=== PATIENT | male | born 1960 | race Asian ===

== ENCOUNTER 2017-06-18 01:27 | Emergency (ER) | payer OTHER ==
[2017-06-18] MEDS ORDERED: KETOROLAC TROMETHAMINE 60 MG/2 ML VIAL IM ONE (01:40)
--- NOTE | 2017-06-18 01:40 | PDOC ---
History of Present Illness - General History Source: Patient Exam Limitations: No Limitations - History of Present Illness Initial Comments: 06/18/17 01:44 56 year old male with a PMHx of HTN, HLD, diabetes who presents to the ED with left sided toothache today. Patient had a root canal last week on the tooth that is painful. He took Ibuprofen with no relief. He has a follow-up appointment on Saturday and states the pain was too severe to wait until then. No other complaints. <Isela Godoy - Last Filed: 06/18/17 01:44> - General History Source: Patient, Old Records Exam Limitations: No Limitations <Jesusita Rodriguez - Last Filed: 06/18/17 01:59> - General Stated Complaint: TOOTHACHE Time Seen by Provider: 06/18/17 01:34 Past History <Isela Godoy - Last Filed: 06/18/17 01:44> - Past Medical History Cardiac Disorders: Yes (CAD, Stent 08/2013) Diabetes: Yes HTN: Yes Hypercholesterolemia: Yes - Surgical History Cardiac Surgery: Yes (CARDIAC STENTS) - Psycho/Social/Smoking Cessation Hx Suicidal Ideation: No Smoking History: Former smoker Have you smoked in the past 12 months: No If you are a former smoker, when did you quit?: 4 YRS AGO Hx Alcohol Use: Yes (RARE) Drug/Substance Use Hx: No Substance Use Type: None <JenniferJesusita - Last Filed: 06/18/17 01:59> - Past Medical History Allergies/Adverse Reactions: Allergies Allergy/AdvReac Type Severity Reaction Status Date / Time No Known Allergies Allergy Verified 06/18/17 01:40 Home Medications: Ambulatory Orders Alpha Lipoic Acid 300 mg PO DAILY 12/28/15 Aspirin [ASA -] 81 mg PO DAILY 12/28/15 Clopidogrel Bisulfate [Plavix -] 75 mg PO DAILY 12/28/15 Insulin Glargine,Hum.rec.anlog [Lantus Solostar PEN -] 50 units SQ HS 12/28/15 Insulin Lispro [Humalog] 0 unit SQ ASDIR 12/28/15 Lisinopril [Prinivil -] 40 mg PO DAILY 12/28/15 Metoprolol Succinate [Toprol Xl -] 25 mg PO DAILY 12/28/15 Omeprazole [Prilosec (RX)] 40 mg PO BID 12/28/15 Ranolazine [Ranexa] 500 mg PO DAILY 12/28/15 Simvastatin [Zocor -] 20 mg PO HS 12/28/15 Sitagliptin Phos/Metformin HCl [Janumet 50-1,000 mg Tablet] 1 tab PO BID Tamsulosin HCl [Flomax] 0.4 mg PO DAILY 12/28/15 Review of Systems - Review of Systems Comments:: 06/18/17 01:44 GENERAL/CONSTITUTIONAL: No fever or chills. No weakness. HEAD, EYES, EARS, NOSE AND THROAT: (+) toothache. No change in vision. No ear pain or discharge. No sore throat. CARDIOVASCULAR: No chest pain or shortness of breath. RESPIRATORY: No cough, wheezing, or hemoptysis. GASTROINTESTINAL: No nausea, vomiting, diarrhea or constipation. GENITOURINARY: No dysuria, frequency, or change in urination. MUSCULOSKELETAL: No joint or muscle swelling or pain. No neck or back pain. SKIN: No rash NEUROLOGIC: No headache, vertigo, loss of consciousness, or change in strength/ sensation. ENDOCRINE: No increased thirst. No abnormal weight change. HEMATOLOGIC/LYMPHATIC: No anemia, easy bleeding, or history of blood clots. ALLERGIC/IMMUNOLOGIC: No hives or skin allergy. <Isela Godoy - Last Filed: 06/18/17 01:44> *Physical Exam - Vital Signs Last Vital Signs Temp Pulse Resp BP Pulse Ox 98.6 F 78 20 148/62 98 06/18/17 01:40 06/18/17 01:40 06/18/17 01:40 06/18/17 01:40 06/18/17 01:40 - Physical Exam Comments: 06/18/17 01:44 GENERAL: Awake, alert, and fully oriented, in no acute distress HEAD: No signs of trauma EYES: PERRLA, EOMI, sclera anicteric, conjunctiva clear ENT: Gingiva intact, no purulent drainage, no tenderness when pressing tooth, nonerythematous. Auricles normal inspection, hearing grossly normal, nares patent, oropharynx clear without exudates. Moist mucosa NECK: No cervical lymphadenopathy. Normal ROM, supple, JVD, or masses LUNGS: Breath sounds equal, clear to auscultation bilaterally. No wheezes, and no crackles HEART: Regular rate and rhythm, normal S1 and S2, no murmurs, rubs or gallops ABDOMEN: Soft, nontender, normoactive bowel sounds. No guarding, no rebound. No masses EXTREMITIES: Normal range of motion, no edema. No clubbing or cyanosis. No cords , erythema, or tenderness NEUROLOGICAL: Cranial nerves II through XII grossly intact. Normal speech, normal gait SKIN: Warm, Dry, normal turgor, no rashes or lesions noted. <Isela Godoy - Last Filed: 06/18/17 01:44> Medical Decision Making - Medical Decision Making 06/18/17 01:42 56-year-old male with history of hypertension, diabetes, HLD, coronary artery disease status post stent x 1 and 2 vessel CABG last year presents to the emergency department with 3-4 hours of dental pain and tooth #21. There is no evidence of infection or abscess formation. Plan: 1. Toradol and Percocet 2. Follow-up with dentist in the morning 3. Return to the emergency department as needed <Jesusita Rodriguez - Last Filed: 06/18/17 01:59> *DC/Admit/Observation/Transfer - Attestations Scribe Attestion: 06/18/17 01:45 Documentation prepared by Isela Godoy, acting as remote medical coder for Jesusita Rodriguez MD. <Isela Godoy - Last Filed: 06/18/17 01:44> - Discharge Dispostion Admit: No - Attestations Physician Attestion: 06/18/17 01:41 I, Dr. Jesusita Rodriguez, attest that the scribes documentation that appears above has been prepared under my direction and personally reviewed by me in its entirety. I confirmed that the note above accurately reflects all work, treatment, procedures, and medical decision-making performed by me. <Jesusita Rodriguez - Last Filed: 06/18/17 01:59> Diagnosis at time of Disposition: Toothache - Discharge Dispostion Disposition: HOME Condition at time of disposition: Stable - Referrals Referrals: Garcia Jarquin MD [Primary Care Provider] - - Patient Instructions Printed Discharge Instructions: DI for Dental Pain Additional Instructions: Please follow-up with your dentist in the morning. You may return to the ED if your symptoms persist, worsen or new symptoms arise.
[2017-06-18] MEDS ORDERED: KETOROLAC TROMETHAMINE 60 MG/2 ML VIAL ONE (01:45)
[2017-06-18 02:02] VITALS: BP 148/62; PULSE 78; TEMP 98.6; BMI 30.4
== END 2017-06-18 02:15 | disposition home or self-care (01) ==
LOC: JER 01:27
PROC: 3E0233Z Introduction of Anti-inflammatory into Muscle, Percutaneous Approach (ICD-10-PCS; principal; 2017-06-18)
DX: K08.9 Disorder of teeth and supporting structures, unspecified (principal); I25.10 Atherosclerotic heart disease of native coronary artery without angina pectoris; I10 Essential (primary) hypertension; Z95.1 Presence of aortocoronary bypass graft; Z95.5 Presence of coronary angioplasty implant and graft; Z87.891 Personal history of nicotine dependence; E11.9 Type 2 diabetes mellitus without complications; Z79.4 Long term (current) use of insulin; Z79.84 Long term (current) use of oral hypoglycemic drugs; E78.00 Pure hypercholesterolemia, unspecified
CPT/HCPCS: 96372; 99282-25

== ENCOUNTER 2017-06-18 21:27 | Emergency (ER) | payer OTHER ==
[2017-06-18 21:43] VITALS: BP 116/74; PULSE 84; TEMP 98.4; BMI 30.4
--- NOTE | 2017-06-18 22:08 | PDOC ---
History of Present Illness - General Chief Complaint: Pain Stated Complaint: DENTAL PAIN Time Seen by Provider: 06/18/17 22:08 History Source: Patient - History of Present Illness Initial Comments: 06/18/17 22:26 pt presents to the ED complaining of persistent pain after start of root canal yesterday. Denies fevers, trismus or facial swelling. Seen in the ED early this AM for the same complaint--treated with toradol which relieved his pain, but now the pain has recurred. Pain starts in the affected tooth and radiates to the L side of the face. no relief with any OTC medications for pain-- patient has tried ibuprofen and tylenol. 06/18/17 22:28 Timing/Duration: constant Severity: moderate Associated Symptoms: reports: denies symptoms Past History - Past Medical History Allergies/Adverse Reactions: Allergies Allergy/AdvReac Type Severity Reaction Status Date / Time No Known Allergies Allergy Verified 06/18/17 21:29 Home Medications: Ambulatory Orders Aspirin [ASA -] 81 mg PO DAILY 12/28/15 Clopidogrel Bisulfate [Plavix -] 75 mg PO DAILY 12/28/15 Insulin Glargine,Hum.rec.anlog [Lantus Solostar PEN -] 50 units SQ HS 12/28/15 Insulin Lispro [Humalog] 0 unit SQ ASDIR 12/28/15 Lisinopril [Prinivil -] 40 mg PO DAILY 12/28/15 Metoprolol Succinate [Toprol Xl -] 25 mg PO DAILY 12/28/15 Omeprazole [Prilosec (RX)] 40 mg PO BID 12/28/15 Ranolazine [Ranexa] 500 mg PO DAILY 12/28/15 Simvastatin [Zocor -] 20 mg PO HS 12/28/15 Sitagliptin Phos/Metformin HCl [Janumet 50-1,000 mg Tablet] 1 tab PO BID Tamsulosin HCl [Flomax] 0.4 mg PO DAILY 12/28/15 Cardiac Disorders: Yes (CAD, Stent 08/2013) Diabetes: Yes GI Disorders: Yes (GERD) HTN: Yes Hypercholesterolemia: Yes - Surgical History Cardiac Surgery: Yes (CARDIAC STENTS) - Immunization History Immunization Up to Date: Yes - Psycho/Social/Smoking Cessation Hx Anxiety: No Suicidal Ideation: No Smoking History: Former smoker Have you smoked in the past 12 months: No If you are a former smoker, when did you quit?: 4 YRS AGO Information on smoking cessation initiated: No Hx Alcohol Use: No Drug/Substance Use Hx: No Substance Use Type: None Review of Systems - Review of Systems Comments:: 06/18/17 22:30 Denies fevers, facial swelling or trismus. *Physical Exam - Vital Signs Last Vital Signs Temp Pulse Resp BP Pulse Ox 98.4 F 84 16 116/74 96 06/18/17 21:28 06/18/17 21:28 06/18/17 21:28 06/18/17 21:28 06/18/17 21:28 - Physical Exam Comments: 06/18/17 22:31 GEN: well appearing, in no acute distress. HEENT: No trismus. tenderness over molars. No fluctuance. No facial swelling. No dental carries. Neck: supple. Medical Decision Making - Medical Decision Making 06/18/17 22:41 Pt presents to the ED requesting "a shot" to help with dental pain after root canal. No signs of infection. No complaints other than dental pain. PAtient is confident that he can arrange follow up with his dentist tomorrow. Recently took low dose ibuprofen. Will give low dose toradol and discharge home. *DC/Admit/Observation/Transfer Diagnosis at time of Disposition: Toothache - Discharge Dispostion Disposition: HOME Condition at time of disposition: Good Admit: No - Patient Instructions Printed Discharge Instructions: DI for Dental Pain Additional Instructions: Return to the ED for severe pain, facial swelling, unable to completely open your mouth, pain with fever, new or worsening symptoms. Make sure you follow up with your dentist tomorrow.
[2017-06-18] MEDS ORDERED: KETOROLAC TROMETHAMINE 60 MG/2 ML VIAL IM ONE (22:15)
[2017-06-18] MEDS ORDERED: KETOROLAC TROMETHAMINE 15 MG/ML VIAL IM ONE (22:36)
[2017-06-18] MEDS ORDERED: KETOROLAC TROMETHAMINE 30 MG/1 ML VIAL ONE (22:41)
== END 2017-06-18 22:54 | disposition home or self-care (01) ==
LOC: FER 21:27
PROC: 3E0233Z Introduction of Anti-inflammatory into Muscle, Percutaneous Approach (ICD-10-PCS; principal; 2017-06-18)
DX: K08.89 Other specified disorders of teeth and supporting structures (principal); I25.10 Atherosclerotic heart disease of native coronary artery without angina pectoris; I10 Essential (primary) hypertension; E78.00 Pure hypercholesterolemia, unspecified; E11.9 Type 2 diabetes mellitus without complications; K21.9 Gastro-esophageal reflux disease without esophagitis; Z79.4 Long term (current) use of insulin; F17.211 Nicotine dependence, cigarettes, in remission
CPT/HCPCS: 96372; 99281-25

== ENCOUNTER 2018-01-20 07:16 | Day surgery (SDC) | payer OTHER ==
[2018-01-20] MEDS ORDERED: DIPHENHYDRAMINE 50 MG in SODIUM CHLORIDE 100 ML IVPB ONE (10:00)
[2018-01-20] MEDS ORDERED: ACETAMINOPHEN 325 MG TABLET (FP) PO ONE (10:00)
[2018-01-20] MEDS ORDERED: FERRIC CARBOXYMALTOSE 750 MG in SODIUM CHLORIDE 250 ML IVPB ONE (10:30)
[2018-01-20 16:46] VITALS: BP 135/72
[2018-01-20 16:47] VITALS: PULSE 65; TEMP 98.3
== END 2018-01-20 16:45 | disposition home or self-care (01) ==
LOC: JONCNONCHE 07:16 → J7W 13:50 → JONCNONCHE 16:45
PROVIDERS: ATTEND Internal Medicine Hematology & Oncology
PROC: 3E033GC Introduction of Other Therapeutic Substance into Peripheral Vein, Percutaneous Approach (ICD-10-PCS; principal; 2018-01-20)
DX: D50.9 Iron deficiency anemia, unspecified (principal)
CPT/HCPCS: 96365

== ENCOUNTER 2018-01-27 07:34 | Day surgery (SDC) | payer OTHER ==
[2018-01-27] MEDS ORDERED: DIPHENHYDRAMINE 50 MG in SODIUM CHLORIDE 100 ML IVPB ONE (10:00)
[2018-01-27] MEDS ORDERED: ACETAMINOPHEN 325 MG TABLET (FP) PO ONE (10:00)
[2018-01-27] MEDS ORDERED: FERRIC CARBOXYMALTOSE 750 MG in SODIUM CHLORIDE 250 ML IVPB ONE (10:30)
[2018-01-27 18:38] VITALS: TEMP 97.2
[2018-01-27 18:39] VITALS: BP 112/76; PULSE 91
== END 2018-01-27 15:30 | disposition home or self-care (01) ==
LOC: JONCNONCHE 07:34 → J7W 13:46 → JONCNONCHE 15:30
PROVIDERS: ATTEND Internal Medicine Hematology & Oncology
PROC: 3E033GC Introduction of Other Therapeutic Substance into Peripheral Vein, Percutaneous Approach (ICD-10-PCS; principal; 2018-01-27)
DX: D50.9 Iron deficiency anemia, unspecified (principal)
CPT/HCPCS: 96365

== ENCOUNTER 2018-10-25 12:17 | Emergency (ER) | payer OTHER ==
[2018-10-25 12:30] VITALS: BMI 30.1
--- NOTE | 2018-10-25 13:11 | PDOC ---
History of Present Illness <Rolando Marks - Last Filed: 10/25/18 16:40> - General History Source: Patient Exam Limitations: Language Barrier - History of Present Illness Initial Comments: 10/25/18 13:35 Pt is a 58yo M with PMH of CAD s/p CABG 2011, HTN, HLD, DM, GERD presenting to ED with complaints of sore throat. Pt says the sore throat started about 2 days ago. He states fevers at home but did not check his temperature. Associated with difficulty breathing, pain with swallowing. Pt says he thinks he may have gotten it from his son who has similar symptoms. Pt says he also has L lower back pain that started yesterday when he was walking but has now gone down. He has a history of L4-L5 disc bulge. Pain is in the L buttock and radiates down to the thigh. He does not take medications for pain. He denies cough, Headache, neck stiffness, congestion, ear pain, abdominal pain, n/v/d, urinary symptoms, rashes. PMD: Milka PMH: see hpi PSH: CABG Meds: see med rec Social: denies Allergies: nkda <Dena Pang - Last Filed: 10/25/18 16:44> - General Chief Complaint: Pain Stated Complaint: THROAT PAIN, ABDOMINAL PAIN Time Seen by Provider: 10/25/18 12:42 Past History <Rolando Marks - Last Filed: 10/25/18 16:40> - Past Medical History Cardiac Disorders: Yes (CAD, Stent 08/2013) COPD: No Diabetes: Yes GI Disorders: Yes (GERD) HTN: Yes Hypercholesterolemia: Yes - Surgical History Cardiac Surgery: Yes (CARDIAC STENTS) - Immunization History Immunization Up to Date: Yes - Suicide/Smoking/Psychosocial Hx Smoking History: Never smoked Have you smoked in the past 12 months: No If you are a former smoker, when did you quit?: 4 YRS AGO Hx Alcohol Use: No Drug/Substance Use Hx: No Substance Use Type: None <Dena Pang - Last Filed: 10/25/18 16:44> - Past Medical History Allergies/Adverse Reactions: Allergies Allergy/AdvReac Type Severity Reaction Status Date / Time No Known Allergies Allergy Verified 10/25/18 12:24 Home Medications: Ambulatory Orders Ascorbic Acid [Vitamin C -] 500 mg PO DAILY 03/12/18 Aspirin [ASA -] 81 mg PO DAILY 03/12/18 Clopidogrel Bisulfate [Plavix -] 75 mg PO DAILY 03/12/18 Ferrous Sulfate [Iron] 325 mg PO TID 03/12/18 Insulin Glargine,Hum.rec.anlog [Lantus] 100 unit SQ HS 03/12/18 Insulin Lispro [Humalog] 12 unit SQ AC 03/12/18 Lisinopril 5 mg PO DAILY 03/12/18 Metoprolol Tartrate 50 mg PO DAILY 03/12/18 Omeprazole 40 mg PO DAILY 03/12/18 Simvastatin 20 mg PO DAILY 03/12/18 Sitagliptin Phos/Metformin HCl [Janumet 50-1,000 mg Tablet] 1 each PO BID Penicillin V Potassium [Pen Vee K -] 500 mg PO TID 10 Days #30 tablet 10/25/18 *Physical Exam - Vital Signs Last Vital Signs Temp Pulse Resp BP Pulse Ox 99.3 F 107 H 22 H 142/89 97 10/25/18 12:25 10/25/18 12:25 10/25/18 12:25 10/25/18 12:25 10/25/18 12:25 <Rolando Marks - Last Filed: 10/25/18 16:40> - Vital Signs Last Vital Signs Temp Pulse Resp BP Pulse Ox 99.3 F 107 H 22 H 142/89 97 10/25/18 12:25 10/25/18 12:25 10/25/18 12:25 10/25/18 12:25 10/25/18 12:25 <Dena Pang - Last Filed: 10/25/18 16:44> Moderate Sedation - Procedure Monitoring Vital Signs: Procedure Monitoring Vital Signs Temperature 99.3 F 10/25/18 12:25 Pulse Rate 107 H 10/25/18 12:25 Respiratory Rate 22 H 10/25/18 12:25 Blood Pressure 142/89 10/25/18 12:25 O2 Sat by Pulse Oximetry (%) 97 10/25/18 12:25 <Rolando Marks - Last Filed: 10/25/18 16:40> - Procedure Monitoring Vital Signs: Procedure Monitoring Vital Signs Temperature 99.3 F 10/25/18 12:25 Pulse Rate 107 H 10/25/18 12:25 Respiratory Rate 22 H 10/25/18 12:25 Blood Pressure 142/89 10/25/18 12:25 O2 Sat by Pulse Oximetry (%) 97 10/25/18 12:25 <Dena Pang - Last Filed: 10/25/18 16:44> ED Treatment Course - Medications Given in the ED: ED Medications Discontinued Medications Generic Name Dose Route Start Last Admin Trade Name Keshav PRN Reason Stop Dose Admin Dexamethasone 10 mg 10/25/18 13:56 10/25/18 15:09 Decadron - PO 10/25/18 13:57 10 mg NOW ONE Administration Ibuprofen 600 mg 10/25/18 13:55 10/25/18 14:15 Motrin - PO 10/25/18 13:56 600 mg ONCE ONE Administration Sodium Chloride 3 ml 10/25/18 15:07 10/25/18 15:34 Normal Saline For Inhalation - IH 10/25/18 15:08 3 ml ONCE ONE Administration Sodium Chloride 3 ml 10/25/18 16:01 10/25/18 16:24 Normal Saline For Inhalation - IH 10/25/18 16:02 3 ml ONCE ONE Administration <KendrickRolando - Last Filed: 10/25/18 16:40> Medical Decision Making - Medical Decision Making Pt is a 58yo M with PMH of CAD s/p CABG 2011, HTN, HLD, DM, GERD presenting to ED with complaints of sore throat. Pt says the sore throat started about 2 days ago. He states fevers at home but did not check his temperature. Associated with difficulty breathing, pain with swallowing. Pt says he thinks he may have gotten it from his son who has similar symptoms. Pt says he also has L lower back pain that started yesterday when he was walking but has now gone down. He has a history of L4-L5 disc bulge. Pain is in the L buttock and radiates down to the thigh. He does not take medications for pain. He denies cough, Headache, neck stiffness, congestion, ear pain, abdominal pain, n/v/d, urinary symptoms, rashes. Vitals: tachycardia PE: no pharyngeal erythema, no tonsillar edema, normal breath sounds. + Cervical lymphadenopathy, nasal turbinate edema. 10/25/18 13:11 saturating 98-100% RA while laying flat on back and talking Most likely viral pharyngitis. Will give motrin, decadron and strep/flu swab. 10/25/18 16:06 Flu negative. waiting for strep. Pt reports feeling better from saline neb. Asking for another. Will give another and d/c based on strep results <Dena Pang - Last Filed: 10/25/18 16:44> *DC/Admit/Observation/Transfer <Rolando Marks - Last Filed: 10/25/18 16:40> - Discharge Dispostion Decision to Admit order: No <Dena Pang - Last Filed: 10/25/18 16:44> Diagnosis at time of Disposition: Sore throat, Strep pharyngitis - Discharge Dispostion Condition at time of disposition: Good - Prescriptions Prescriptions: Penicillin V Potassium [Pen Vee K -] 500 mg PO TID 10 Days #30 tablet - Referrals Referrals: Garcia Jarquin MD [Primary Care Provider] - - Patient Instructions Printed Discharge Instructions: DI for Strep Throat Additional Instructions: You have strep throat. This is a bacterial infection that can be treated with antibiotics. Take the penicillin V three times a day to treat it. You can take Tylenol or Ibuprofen for pain as needed. You can use a humidifier at home. You can also gargle with warm water. I recommend you make an appointment with your primary care doctor in the next few days. Come back to the emergency room if pain gets worse, you have fever, you have difficulty breathing, you have chest pain or if any new concerning symptom develops. Thank you - Post Discharge Activity
[2018-10-25] MEDS ORDERED: IBUPROFEN 600 MG TABLET (FP) PO ONE ×2 (13:55→14:13)
[2018-10-25] MEDS ORDERED: DEXAMETHASONE 4 MG TABLET (FP) PO ONE (13:56)
[2018-10-25] MEDS ORDERED: SODIUM CHLORIDE FOR INHALATION 3 ML VIAL.NEB IH ONE ×2 (15:07→16:01)
--- NOTE | 2018-10-25 15:48 | PDOC ---
Attending Attestation - Resident Resident Name: Dena Pang - ED Attending Attestation I have performed the following: I have examined & evaluated the patient, The case was reviewed & discussed with the resident, I agree w/resident's findings & plan, Exceptions are as noted - HPI HPI: 10/25/18 15:48 58 M with h/o CAD s/p CABG 2012, HTN, HLD, DM, GERD presenting to ED with sore throat x 2 days and lower back pain radiating down L leg. Pt states that he began to have sore throat yesterday. Denies F/C. Endorses pain with swallowing. Denies CP/SOB. Denies cough. Pt also complains of lower back pain radiating down L leg for several days. He has history of lumbar disc bulging and states this pain is similar to pain he has had previously. Denies weakness/numbness in his legs. Denies saddle anesthesia or incontinence. - Physicial Exam PE: 10/25/18 15:49 "GENERAL: Awake, alert, and fully oriented, in no acute distress. HEAD: No signs of trauma EYES: PERRLA, EOMI, sclera anicteric, conjunctiva clear ENT: + mild erythema posterior OP, no exudates, Auricles normal inspection, hearing grossly normal, nares patent,Moist mucosa NECK: Nontender, no stepoffs, Normal ROM, supple, no lymphadenopathy, JVD, or masses LUNGS: Breath sounds equal, clear to auscultation bilaterally. No wheezes, and no crackles HEART: Regular rate and rhythm, normal S1 and S2, no murmurs, rubs or gallops ABDOMEN: Soft, nontender, normoactive bowel sounds. No guarding, no rebound. No masses EXTREMITIES: Normal range of motion, no edema. No clubbing or cyanosis. No cords, erythema, or tenderness NEUROLOGICAL: Cranial nerves II through XII intact. 5/5 strength and sensation in all extremities, Normal speech, normal gait, normal cerebellar function SKIN: Warm, Dry, normal turgor, no rashes or lesions noted. - Medical Decision Making 10/25/18 15:50 58 M with sore throat and LBP. Sore throat likely viral pharyngitis. no exudates. No evidence of abscess formation. Pt's lower back pain likely chronic lumbar radiculopathy. No s/s of cauda equina or cord compression. - Rapid strep - Flu swab - Motrin, decadron - Saline neb 10/25/18 16:32 Flu negative rapid strep POSITIVE Will tx with Pen V Pt given motrin and decadron, now with improvement in pain.
[2018-10-25] MEDS ORDERED: PENICILLIN V POTASSIUM 500 MG TABLET PO ONE (16:38)
[2018-10-25 16:42] VITALS: BP 115/80; PULSE 95; TEMP 98.3
== END 2018-10-25 16:52 | disposition home or self-care (01) ==
LOC: JER 12:17
PROC: 3E0F7GC Introduction of Other Therapeutic Substance into Respiratory Tract, Via Natural or Artificial Opening (ICD-10-PCS; principal; 2018-10-25)
PROC: 3E0F7GC Introduction of Other Therapeutic Substance into Respiratory Tract, Via Natural or Artificial Opening (ICD-10-PCS; 2018-10-25)
DX: J02.0 Streptococcal pharyngitis (principal); B95.0 Streptococcus, group A, as the cause of diseases classified elsewhere; I25.10 Atherosclerotic heart disease of native coronary artery without angina pectoris; I10 Essential (primary) hypertension; Z95.1 Presence of aortocoronary bypass graft; Z95.5 Presence of coronary angioplasty implant and graft; E11.9 Type 2 diabetes mellitus without complications; Z79.4 Long term (current) use of insulin; K21.9 Gastro-esophageal reflux disease without esophagitis; E78.5 Hyperlipidemia, unspecified
CPT/HCPCS: 87804; 87880; 94640; 99284-25

== ENCOUNTER 2019-01-09 18:19 | Emergency (ER) | payer OTHER ==
--- NOTE | 2019-01-09 18:24 | PDOC ---
Rapid Medical Evaluation Time Seen by Provider: 01/09/19 18:20 Medical Evaluation: Allergies Allergy/AdvReac Type Severity Reaction Status Date / Time No Known Allergies Allergy Verified 10/25/18 12:24 01/09/19 18:20 I have performed a brief in-person evaluation of this patient. The patient presents with a chief complaint of:malaise w/ LINDA, congestion and dry cough since yesterday. w/ same. H/o HTN, HLD, DM, CAD s/p CABG, GERD Pertinent physical exam findings:stable and well chrissy I have ordered the following:flu sent The patient will proceed to the ED for further evaluation. Discharge Disposition - Diagnosis Viral syndrome - Referrals - Patient Instructions - Post Discharge Activity
[2019-01-09 18:25] VITALS: BP 148/87; PULSE 77; TEMP 98.4; BMI 30.2
--- NOTE | 2019-01-09 19:32 | PDOC ---
History of Present Illness - General Chief Complaint: Cold Symptoms Stated Complaint: COUGH,NASAL CONGESTION Time Seen by Provider: 01/09/19 18:20 History Source: Patient Exam Limitations: No Limitations - History of Present Illness Initial Comments: 01/09/19 19:27 HISTORY OF PRESENT ILLNESS: 58-year-old male past medical history of hypertension, diabetes, hyperlipidemia, CABG presents emergency department for evaluation of maxillary and frontal sinus pressure, dry cough, nasal congestion and rhinorrhea. Patient denies any fevers or chills. Patient reports his is been expressing similar symptoms but has not sought treatment for symptoms. No recent travel or sick contacts. PAST MEDICAL HISTORY:see HPI SURGICAL HISTORY: see HPI ALLERGIES: No known drug allergies REVIEW OF SYSTEMS General/Constitutional: Denies fever or chills. Denies weakness, weight change. HEENT: see HPI Cardiovascular: Denies chest pain or shortness of breath. Respiratory: Denies cough, wheezing, or hemoptysis. Gastrointestinal: Denies nausea, vomiting, diarrhea or constipation. Denies rectal bleeding. Genitourinary: Denies dysuria, frequency, or change in urination. Musculoskeletal: Denies joint or muscle swelling or pain. Denies neck or back pain. Skin and breasts: Denies rash or easy bruising. Neurologic: Denies headache, vertigo, loss of consciousness, or loss of sensation. Psychiatric: Denies depression or anxiety. Endocrine: Denies increased thirst. Denies abnormal weight change. Hematologic/Lymphatic: Denies anemia, easy bleeding, or history of blood clots. Allergic/Immunologic: Denies hives or skin allergy. Denies latex allergy. PHYSICAL EXAM General Appearance: Well-appearing, appropriately dressed. No apparent distress , no intoxication. HEENT: EOMI, PERRLA, normal ENT inspection, normal voice, TMs normal, pharynx normal. No conjunctival pallor. No photophobia, scleral icterus. Tender to palpation over her maxillary and frontal sinuses bilaterally. Nasal congestion present. Mucous present in the posterior oropharynx. Neck: Supple. Trachea midline. No tenderness, rigidity, carotid bruit, stridor , lymphadenopathy, or thyromegaly. Respiratory/Chest: Lungs CTAB. No shortness of breath, chest tenderness, respiratory distress, accessory muscle use. No crackles, rales, rhonchi, stridor , wheezing, dullness Cardiovascular: RRR. S1, S2. No JVD, murmur, bradycardia, tachycardia. Neurologic: plan coordinator II-XII intact. Fully oriented, alert. Appropriate mood/affect. Motor strength 5/5. No appreciable EOM palsy, facial droop or sensory deficit. Past History - Past Medical History Allergies/Adverse Reactions: Allergies Allergy/AdvReac Type Severity Reaction Status Date / Time No Known Allergies Allergy Verified 10/25/18 12:24 Home Medications: Ambulatory Orders Ascorbic Acid [Vitamin C -] 500 mg PO DAILY 03/12/18 Aspirin [ASA -] 81 mg PO DAILY 03/12/18 Clopidogrel Bisulfate [Plavix -] 75 mg PO DAILY 03/12/18 Ferrous Sulfate [Iron] 325 mg PO TID 03/12/18 Insulin Glargine,Hum.rec.anlog [Lantus] 100 unit SQ HS 03/12/18 Insulin Lispro [Humalog] 12 unit SQ AC 03/12/18 Lisinopril 5 mg PO DAILY 03/12/18 Metoprolol Tartrate 50 mg PO DAILY 03/12/18 Omeprazole 40 mg PO DAILY 03/12/18 Simvastatin 20 mg PO DAILY 03/12/18 Sitagliptin Phos/Metformin HCl [Janumet 50-1,000 mg Tablet] 1 each PO BID Penicillin V Potassium [Pen Vee K -] 500 mg PO TID 10 Days #30 tablet 10/25/18 Amox-Tr/K Cl [Augmentin - 875Mg Tablet] 1 tab PO BID #20 tablet 01/09/19 Cardiac Disorders: Yes (CAD, Stent 08/2013) COPD: No Diabetes: Yes GI Disorders: Yes (GERD) HTN: Yes Hypercholesterolemia: Yes - Surgical History Cardiac Surgery: Yes (CARDIAC STENTS) - Immunization History Immunization Up to Date: Yes - Suicide/Smoking/Psychosocial Hx Smoking History: Unknown if ever smoked Have you smoked in the past 12 months: No If you are a former smoker, when did you quit?: 4 YRS AGO Hx Alcohol Use: No Drug/Substance Use Hx: No Substance Use Type: None *Physical Exam - Vital Signs Last Vital Signs Temp Pulse Resp BP Pulse Ox 98.4 F 77 20 148/87 97 01/09/19 18:20 01/09/19 18:20 01/09/19 18:20 01/09/19 18:20 01/09/19 18:20 Moderate Sedation - Procedure Monitoring Vital Signs: Procedure Monitoring Vital Signs Temperature 98.4 F 01/09/19 18:20 Pulse Rate 77 01/09/19 18:20 Respiratory Rate 20 01/09/19 18:20 Blood Pressure 148/87 01/09/19 18:20 O2 Sat by Pulse Oximetry (%) 97 01/09/19 18:20 Medical Decision Making - Medical Decision Making 01/09/19 19:31 A/P: 58-year-old male with sinusitis Influenza testing done in rapid medical evaluation is negative. I'll discharge the patient home with prescription for Augmentin to treat his sinusitis. *DC/Admit/Observation/Transfer Diagnosis at time of Disposition: Sinusitis Qualifiers: Sinusitis location: unspecified location Chronicity: acute Recurrence: not specified as recurrent Qualified Code(s): J01.90 - Acute sinusitis, unspecified - Discharge Dispostion Disposition: HOME Condition at time of disposition: Stable Decision to Admit order: No - Prescriptions Prescriptions: Amox-Tr/K Cl [Augmentin - 875Mg Tablet] 1 tab PO BID #20 tablet - Referrals Referrals: Garcia Jarquin MD [Primary Care Provider] - - Patient Instructions Additional Instructions: Use humidified air in her room to help moisturize her nasal passages. Drink plenty of fluids Take antibiotics as prescribed. Finish all antibiotics even if you feel better. You may want to eat yogurt while taking antibiotics. Take Tylenol or Motrin for fevers and/or pain. If symptoms continue follow-up with ENT specialist provided. Return to the emergency department for any new or worsening symptoms. Thank you very much for choosing us to provide your emergent health care needs. - Post Discharge Activity
== END 2019-01-09 19:43 | disposition home or self-care (01) ==
LOC: JER 18:19 → JERFT 18:19
DX: J01.90 Acute sinusitis, unspecified (principal); I25.10 Atherosclerotic heart disease of native coronary artery without angina pectoris; I10 Essential (primary) hypertension; Z95.1 Presence of aortocoronary bypass graft; Z95.5 Presence of coronary angioplasty implant and graft; E11.9 Type 2 diabetes mellitus without complications; Z79.4 Long term (current) use of insulin; K21.9 Gastro-esophageal reflux disease without esophagitis; Z86.2 Personal history of diseases of the blood and blood-forming organs and certain disorders involving the immune mechanism
CPT/HCPCS: 87804; 99281-25

== ENCOUNTER 2019-01-20 09:20 | Emergency (ER) | payer OTHER ==
[2019-01-20 09:31] VITALS: BP 128/79; PULSE 91; TEMP 97.9; BMI 29.5
--- NOTE | 2019-01-20 09:42 | PDOC ---
History of Present Illness - General Chief Complaint: Injury Stated Complaint: FALL Time Seen by Provider: 01/20/19 09:38 History Source: Patient Exam Limitations: No Limitations - History of Present Illness Initial Comments: 01/20/19 09:52 States was walking on sidewalk this morning to car when he slipped on ice falling backwards striking the back of his head. There was no LOC, and patient was able to get himself up into his car. States has some mild neck pain, upper and lower back pain, but no extremity injury. Denies visual changes, denies any drainage from nose or ears, Occurred: reports: just prior to arrival, this morning Severity: reports: moderate Pain Location: reports: head, neck Method of Injury: Yes: direct blow, fall Loss of Consciousness: no loss of consciousness Associated Symptoms (Fall): headache, neck pain Past History - Travel Traveled outside of the country in the last 30 days: No Close contact w/someone who was outside of country & ill: No - Past Medical History Allergies/Adverse Reactions: Allergies Allergy/AdvReac Type Severity Reaction Status Date / Time No Known Allergies Allergy Verified 01/20/19 09:27 Home Medications: Ambulatory Orders Ascorbic Acid [Vitamin C -] 500 mg PO DAILY 03/12/18 Aspirin [ASA -] 81 mg PO DAILY 03/12/18 Clopidogrel Bisulfate [Plavix -] 75 mg PO DAILY 03/12/18 Ferrous Sulfate [Iron] 325 mg PO TID 03/12/18 Insulin Glargine,Hum.rec.anlog [Lantus] 100 unit SQ HS 03/12/18 Insulin Lispro [Humalog] 12 unit SQ AC 03/12/18 Lisinopril 5 mg PO DAILY 03/12/18 Metoprolol Tartrate 50 mg PO DAILY 03/12/18 Omeprazole 40 mg PO DAILY 03/12/18 Simvastatin 20 mg PO DAILY 03/12/18 Sitagliptin Phos/Metformin HCl [Janumet 50-1,000 mg Tablet] 1 each PO BID Cardiac Disorders: Yes (CAD, Stent 08/2013) COPD: No Diabetes: Yes GI Disorders: Yes (GERD) HTN: Yes Hypercholesterolemia: Yes - Surgical History Cardiac Surgery: Yes (CARDIAC STENTS) - Immunization History Immunization Up to Date: Yes - Suicide/Smoking/Psychosocial Hx Smoking History: Former smoker Have you smoked in the past 12 months: No If you are a former smoker, when did you quit?: 4 YRS AGO Information on smoking cessation initiated: No Hx Alcohol Use: No Drug/Substance Use Hx: No Substance Use Type: None Review of Systems - Review of Systems Able to Perform ROS?: Yes Is the patient limited Montenegrin proficient: Yes Constitutional: Yes: See HPI. No: Symptoms Reported, Fever, Malaise HEENTM: Yes: See HPI. No: Symptoms Reported, Eye Pain, Nose Congestion Respiratory: Yes: See HPI. No: Symptoms reported, Cough Musculoskeletal: Yes: Symptoms Reported, See HPI, Back Pain, Joint Swelling ( paravertebral spinal muscle pain ), Neck Pain Integumentary: Yes: Symptoms Reported, See HPI, Bruising Neurological: Yes: Symptoms reported, See HPI, Headache. No: Numbness, Paresthesia All Other Systems: Reviewed and Negative *Physical Exam - Vital Signs Last Vital Signs Temp Pulse Resp BP Pulse Ox 97.9 F 91 H 18 128/79 100 01/20/19 09:30 01/20/19 09:30 01/20/19 09:30 01/20/19 09:30 01/20/19 09:30 - Physical Exam General Appearance: Yes: Nourished, Appropriately Dressed, Apparent Distress, Mild Distress HEENT: positive: EDISON, TMs Normal (no hemotympanum, no drainage from nose or ears, no evidence of skull fracture. Has soft tissue swelling approximately 3 cm to occiput, without crepitus or step-offs,) Neck: positive: Tender, Trachea midline, Other (has no C-spine tenderness crepitus or step-offs. Range of motion is intact but has complaints of pain to paravertebral spinous musculature both sides states with flexion is tender on both sides of his neck.) Respiratory/Chest: positive: Lungs Clear. negative: Chest Tender Gastrointestinal/Abdominal: positive: Soft. negative: Tender Musculoskeletal: positive: Normal Inspection, Vertebral Tenderness. negative: CVA Tenderness Extremity: positive: Normal Capillary Refill Integumentary: positive: Normal Color, Dry, Warm, Ecchymosis (to scalp and occiput), Bruising Neurologic: positive: transition coach II-XII NML intact, Fully Oriented, Alert, Normal Mood/ Affect, Normal Response, Motor Strength 5/5 Moderate Sedation - Procedure Monitoring Vital Signs: Procedure Monitoring Vital Signs Temperature 97.9 F 01/20/19 09:30 Pulse Rate 91 H 01/20/19 09:30 Respiratory Rate 18 01/20/19 09:30 Blood Pressure 128/79 01/20/19 09:30 O2 Sat by Pulse Oximetry (%) 100 01/20/19 09:30 Progress Note - Progress Note Progress Note: Fall with head contusion, CAT scan negative for fracture, or hematoma. *DC/Admit/Observation/Transfer Diagnosis at time of Disposition: Head injury due to trauma Qualifiers: Encounter type: initial encounter Qualified Code(s): S09.90XA - Unspecified injury of head, initial encounter - Discharge Dispostion Disposition: HOME Condition at time of disposition: Stable Decision to Admit order: No - Referrals Referrals: Garcia Jarquin MD [Primary Care Provider] - - Patient Instructions Printed Discharge Instructions: DI for Closed Head Injury Additional Instructions: Rest, avoid strenuous activity or exercise for the next 24-48 hours May use ice on contusions as needed. May use Tylenol or Motrin for pain relief Watch and seek evaluation for changes in behavior including crankiness, inconsolability, quietness/ sleepiness that is inappropriate, tiredness that is inappropriate, watch for worsening and changes of behavior. Seek immediate evaluation/return to emergency department for vomiting, mental status changes, pain that's out of proportion , bloody drainage from ears or nose. Followup with private physician as needed in one to 2 days for reevaluation - Post Discharge Activity Forms/Work/School Notes: Back to Work
[2019-01-20] MEDS ORDERED: ACETAMINOPHEN 500 MG TABLET (FP) ONE (09:49)
== END 2019-01-20 12:00 | disposition home or self-care (01) ==
LOC: JERFT 09:20
DX: S00.83XA Contusion of other part of head, initial encounter (principal); W00.2XXA Other fall from one level to another due to ice and snow, initial encounter; Y93.01 Activity, walking, marching and hiking; Y92.480 Sidewalk as the place of occurrence of the external cause; Y99.8 Other external cause status; I25.10 Atherosclerotic heart disease of native coronary artery without angina pectoris; I10 Essential (primary) hypertension; Z95.5 Presence of coronary angioplasty implant and graft; Z87.891 Personal history of nicotine dependence; Z79.01 Long term (current) use of anticoagulants; E11.9 Type 2 diabetes mellitus without complications; Z79.4 Long term (current) use of insulin; E78.00 Pure hypercholesterolemia, unspecified; K21.9 Gastro-esophageal reflux disease without esophagitis
CPT/HCPCS: 70450-TC; 99281-25

== ENCOUNTER 2019-10-03 08:45 | Emergency (ER) | payer OTHER ==
[2019-10-03 08:50] VITALS: BMI 28.9
--- NOTE | 2019-10-03 08:52 | PDOC ---
History of Present Illness - General Chief Complaint: Nasal Bleeding Stated Complaint: NASAL BLEEDING Time Seen by Provider: 10/03/19 08:52 History Source: Patient Exam Limitations: No Limitations - History of Present Illness Initial Comments: 59 year old male with PMH CAD s/p CABG 2011 on ASA/Plavix, HTN, HLD, DM, GERD presented to ED For epistaxis x4-5 days, associated with 1 episode of hemoptysis today, and having to clear his throat a lot. Pt reported he saw his ENT for his post-nasal drip a few weeks ago, had a camera look down, and was told everything was normal, though he reported he is not taking any allergy medication. He then went to [facility] x3 days ago for epistaxis, he was told everything was normal, but was not told to take any medication. He reported this AM that he coughed up blood, and then he decided to come to the ED. Pt denied cough/rhinorrhea/sinus congesition/sore throat/sick contacts. He reported he has had a shock-like sensation occurring around his head that last 30 seconds xthe last month, and he notices is occurs more often when he is laying down to pray and splashing water all over his face. He described the area affected to be in a band like distribution around his head. He denied any of the sensation being on his face. He also reported right sided chest pain x1 month, that lasts only as long as he is moving his right arm. He reported he has told his PCP neither about his head sensation and chest pain that has been occurring. ROS General: denied fever, chills, generalized weakness. HEENT: admitted to epistaxis. denied sore throat, rhinorrhea, ear pain. Cardiovascular: denied chest pain, palpitations, syncope, diaphoresis. Respiratory: admitted to hemoptysis. denied shortness of breath, cough, sputum production. Gastrointestinal: denied abdominal pain, nausea, vomiting, diarrhea, constipation, blood in stool. Genitourinary: denied dysuria, increased urinary frequency, hematuria, urinary incontinence, flank pain. Back: denied back pain. Musculoskeletal: denied joint pain, muscle pain, joint swelling. Neurological: admitted to headache. denied dizziness, numbness, tingling, weakness. Integumentary: denied rash, laceration, abrasion. Hematologic/Lymphatic: denied bruising or bleeding. PE Constitutional: Well-nourished, Well-developed, appearing stated age. HEENT: head is normocephalic, atraumatic. EOMI. PERRLA. no septal hematoma bilaterally. dry mucous membranes noted to nares. no posterior pharyngeal erythema.no tonsillar swelling or exudates bilaterally. uvula midline. no peritonsillar swelling, tenderness or abscess. no jaw tenderness or misalignment. Neck: supple. Full ROM. Cardiovascular: regular heart rhythm. no murmurs. no pericardial friction rub. Respiratory: clear to auscultation bilaterally. no crackles, rhonchi or wheezing. no stridor. Gastrointestinal: soft, nontender. normal bowel sounds. no rebound, guarding, masses. Extremities: peripheral pulses intact. no lower extremity edema. Neurological: CN 2-12 grossly intact. moves all four extremities. Psych: awake, alert, oriented x3. follows commands. answers questions appropriately. Chest: no anterior chest wall tenderness to palpation. Past History - Past Medical History Allergies/Adverse Reactions: Allergies Allergy/AdvReac Type Severity Reaction Status Date / Time No Known Allergies Allergy Verified 10/03/19 08:50 Home Medications: Ambulatory Orders Ascorbic Acid [Vitamin C -] 500 mg PO DAILY 03/12/18 Aspirin [ASA -] 81 mg PO DAILY 03/12/18 Clopidogrel Bisulfate [Plavix -] 75 mg PO DAILY 03/12/18 Ferrous Sulfate [Iron] 325 mg PO TID 03/12/18 Insulin Glargine,Hum.rec.anlog [Lantus] 100 unit SQ HS 03/12/18 Insulin Lispro [Humalog] 12 unit SQ AC 03/12/18 Lisinopril 5 mg PO DAILY 03/12/18 Metoprolol Tartrate 50 mg PO DAILY 03/12/18 Omeprazole 40 mg PO DAILY 03/12/18 Simvastatin 20 mg PO DAILY 03/12/18 Sitagliptin Phos/Metformin HCl [Janumet 50-1,000 mg Tablet] 1 each PO BID Cetirizine HCl [Zyrtec -] 10 mg PO DAILY #14 tablet 10/03/19 Fluticasone Prop 0.05% Nasal [Flonase -] 1 - 2 spray NS DAILY #1 spray.pump - Immunization History Immunization Up to Date: Yes - Psycho Social/Smoking Cessation Hx Smoking History: Never smoked Have you smoked in the past 12 months: No If you are a former smoker, when did you quit?: 4 YRS AGO Hx Alcohol Use: No Drug/Substance Use Hx: No Substance Use Type: None *Physical Exam - Vital Signs Last Vital Signs Temp Pulse Resp BP Pulse Ox 97.8 F 77 16 146/81 98 10/03/19 08:47 10/03/19 08:47 10/03/19 08:47 10/03/19 08:47 10/03/19 08:47 Procedures - Additional Procedures Progress: Chemical cauterization of the nasal septum vessels was achieved through application of sliver nitrate to bilateral septum. The medication caused the patient to sneeze a lot, but otherwise he tolerated it well. ED Treatment Course - LABORATORY CBC & Chemistry Diagram: 10/03/19 09:25 10/03/19 11:54 Medical Decision Making - Medical Decision Making 59 year old male with above PMH presented to ED for epistaxis x4-5 days, hemoptysis episode today, headache intermittently x1 month, right sided chest pain associated with right arm movement. Initial Vital Signs Temp Pulse Resp BP Pulse Ox 97.8 F 77 16 146/81 98 10/03/19 08:47 10/03/19 08:47 10/03/19 08:47 10/03/19 08:47 10/03/19 08:47 Afebrile. No tachycardia. No tachypnea. Hypertensive. No hypoxia on room air. Labs ordered: CBC, CMP, troponin, PT/PTT/INR Imaging ordered: CXR Medications ordered: tylenol IV, normal saline bolus 1000 cc once EKG performed at CXR report: Name: [facility] Phys: Grace Salomon RESIDENT : 1960 Age: 59 Sex: M [facility] Acct: [id number] Loc: [address] Exam Date: 10/03/19 Status: CINTHIA Metzger [address] Unit Number: [id number] EXAM#: TYPE/EXAM: RESULT: [id number] RAD/CHEST PA LAT Chest: Right-sided chest pain 2 views of the chest have been submitted. There are clear well aerated lungs, sternal hardware indicating previous median sternotomy, normal heart, normal aorta normal wes. There is no sign of infiltrate or failure. The angles are sharp and the soft tissues are intact. There are degenerative changes. There appears to have been old right clavicular trauma. Correlation recommended Impression: No acute pathology. Previous median sternotomy. Old right clavicular trauma. Reported By: Vinicio Laurent MD 10/03/19 0957 10/03/19 10:07 CBC WBC 11.5 K/mm3 (4.0-10.0) H 10/03/19 09:25 RBC 4.84 M/mm3 (4.00-5.60) 10/03/19 09:25 Hgb 15.3 GM/dL (11.7-16.9) 10/03/19 09:25 Hct 44.1 % (35.4-49) 10/03/19 09:25 MCV 91.1 fl (80-96) 10/03/19 09:25 MCH 31.5 pg (25.7-33.7) 10/03/19 09:25 MCHC 34.6 g/dl (32.0-35.9) 10/03/19 09:25 RDW 13.4 % (11.9-15.9) 10/03/19 09:25 Plt Count 208 K/MM3 (134-434) 10/03/19 09:25 MPV 8.9 fl (7.5-11.1) 10/03/19 09:25 Absolute Neuts (auto) 7.1 K/mm3 (1.5-8.0) 10/03/19 09:25 Neutrophils % 61.0 % (42.8-82.8) 10/03/19 09:25 Lymphocytes % 21.5 % (8-40) D 10/03/19 09:25 Monocytes % 6.6 % (3.8-10.2) 10/03/19 09:25 Eosinophils % 10.1 % (0-4.5) H 10/03/19 09:25 Basophils % 0.8 % (0-2.0) 10/03/19 09:25 Nucleated RBC % 0 % (0-0) 10/03/19 09:25 Mild leukocytosis without left shift. No anemia. No thrombocytopenia. 10/03/19 10:52 CMP Sodium 132 mmol/L (136-145) L 10/03/19 09:25 Potassium mmol/L (3.5-5.1) 10/03/19 09:25 Chloride 100 mmol/L (98-107) 10/03/19 09:25 Carbon Dioxide 27 mmol/L (21-32) 10/03/19 09:25 Anion Gap 5 MMOL/L (8-16) L 10/03/19 09:25 BUN 17.9 mg/dL (7-18) 10/03/19 09:25 Creatinine 1.0 mg/dL (0.55-1.3) 10/03/19 09:25 Est GFR (CKD-EPI)AfAm 95.73 10/03/19 09:25 Est GFR (CKD-EPI)NonAf 82.60 10/03/19 09:25 Random Glucose 238 mg/dL (74-106) H 10/03/19 09:25 Calcium 9.0 mg/dL (8.5-10.1) 10/03/19 09:25 Total Bilirubin 0.7 mg/dL (0.2-1) 10/03/19 09:25 AST 84 U/L (15-37) H 10/03/19 09:25 ALT 62 U/L (13-61) H 10/03/19 09:25 Alkaline Phosphatase 80 U/L (45-117) 10/03/19 09:25 Troponin I < 0.02 ng/ml (0.00-0.05) 10/03/19 09:25 Total Protein 7.4 g/dl (6.4-8.2) 10/03/19 09:25 Albumin 3.8 g/dl (3.4-5.0) 10/03/19 09:25 Mild hyponatremia. K hemolyzed, redraw sent. No KALIA. Mild transaminitis. Troponin undetectable. D-dimer wnl. INR, PTT INR 1.11 (0.83-1.09) H 10/03/19 09:25 No supratherapeutic INR. 10/03/19 11:38 CT head report: Name: [facility] Phys: Grace Salomon RESIDENT : 1960 Age: 59 Sex: M [facility] Acct: [id number] Loc: [facility] [facility] Exam Date: 10/03/19 Status: CINTHIA Metzger Unit Number: [id number] EXAM#: TYPE/EXAM: RESULT: [id number] CT/HEAD CT WITHOUT CONTRAST Cranial CT without contrast Clinical information: headache x 1 month Multiplanar imaging was performed. Intravenous contrast was not administered. No intraparenchymal hemorrhage is seen. There is no CT evidence of acute subarachnoid hemorrhage. No extra-axial fluid collection is noted. There is no obvious mass lesion on noncontrast imaging. No discrete infarct is identified within the limitations of CT. The ventricles and cisterns appear unremarkable. A partly empty sella turcica is noted which is usually of no clinical significance. No calvarial defect is noted. The partially imaged paranasal sinuses demonstrate no opacification. Impression: No CT evidence of acute intracranial pathology. There has been no definite interval change in comparison to a prior CT exam of . Reported By: Jass Lockhart MD 10/03/19 1131 10/03/19 11:49 Sliver nitrate applied to bilateral nasal septum. Pt to be discharged with zyrtec prescription and corticosteroid nasal spray. Pending repeat Heather. 10/03/19 12:37 K 4.9 Pt discharged. Discharge - Discharge Information Problems reviewed: Yes Clinical Impression/Diagnosis: Epistaxis, Headache Condition: Improved Disposition: HOME - Admission No - Additional Discharge Information Prescriptions: Cetirizine HCl [Zyrtec -] 10 mg PO DAILY #14 tablet Fluticasone Prop 0.05% Nasal [Flonase -] 1 - 2 spray NS DAILY #1 spray.pump - Follow up/Referral Referrals: Jose David Arriaza MD [Primary Care Provider] - - Patient Discharge Instructions Additional Instructions: Follow up with your primary care doctor within 3 days. Your care is not complete until you follow up. I have prescribed you a daily allergy medication, you can also find it over the counter. Take as advised on label. I have prescribed you a nasal steroid spray to be used daily. Take Tylenol over the counter for your headaches/pain. Take as advised on label. Return to the Emergency Department for increasing pain, chest pain, shortness of breath, vomiting, weakness, numbness, tingling, or any other new, worsening or concerning symptoms. - Post Discharge Activity Work/Back to School Note: Back to Work
[2019-10-03] MEDS ORDERED: ACETAMINOPHEN 1000 MG/100 ML VIAL (NON FORMULARY) IVPB ONE (09:29)
[2019-10-03] MEDS ORDERED: SODIUM CHLORIDE 1,000 ML IV STA (09:29)
[2019-10-03] MEDS ORDERED: ACETAMINOPHEN INJECTION 100 ML IVPB ONE (09:35)
[2019-10-03 09:40] LABS: BASO % 0.8 % (0-2.0); EOS % 10.1 % (0-4.5); HEMATOCRIT 44.1 % (35.4-49); HEMOGLOBIN 15.3 GM/dL (11.7-16.9); LYMPH % 21.5 % (8-40); MCH 31.5 pg (25.7-33.7); MCHC 34.6 g/dl (32.0-35.9); MEAN CELL VOLUME 91.1 fl (80-96); MEAN PLT VOLUME 8.9 fl (7.5-11.1); MONO % 6.6 % (3.8-10.2); PLATELET COUNT 208 K/MM3 (134-434); RBC 4.84 M/mm3 (4.00-5.60); RDW 13.4 % (11.9-15.9); WHITE BLOOD COUNT 11.5 K/mm3 (4.0-10.0)
--- NOTE | 2019-10-03 09:52 | PDOC ---
Attending Attestation - Resident Resident Name: UmmGrace - ED Attending Attestation I have performed the following: I have examined & evaluated the patient, The case was reviewed & discussed with the resident, I agree w/resident's findings & plan - HPI HPI: 10/03/19 09:50 59 year old male with PMH CAD s/p CABG 2011 on ASA/Plavix, HTN, HLD, DM, GERD presented to ED For epistaxis x4-5 days, associated with 1 episode of hemoptysis today, and having to clear his throat a lot. continues to have intermittent periods of epistaxis, with nose blowing. Pt reported he saw his ENT for his post-nasal drip a few weeks ago, s/p rhinoscopy, unremarkable per his report. [facility] x3 days ago for epistaxis, he was told everything was normal, but was not told to take any medication. Pt denied cough/rhinorrhea/sinus congesition/sore throat/sick contacts. He reported he has had a shock/band-like sensation occurring around his head that last 30 seconds xthe last month, and he notices is occurs more often when he is laying down to pray and splashing water all over his face. He also reported right sided chest pain x1 month, that lasts only as long as he is moving his right arm. He reported he has told his PCP neither about his head sensation and chest pain that has been occurring. 10/03/19 12:12 - Physicial Exam PE: 10/03/19 09:50 Agree with the resident's HPI and PE as documented in the electronic medical record. NAD, well appearing, EOMI, PERRL, nl conjunctiva, anicteric; CN II-XII grossly intact, +left nare anterior septum with small area of dried blood/superficial laceration - will need to cauterize, as once manipulated, small bleeding occurs. neck supple. lungs clear, RRR, no murmur. abdomen soft nontender. no rebound, guarding. Back nontender. SINGH x4, no focal neuro deficits. No peripheral edema. normal color for ethnicity, [facility]. 10/03/19 12:13 - Medical Decision Making 10/03/19 09:50 Vital Signs Temp Pulse Resp BP Pulse Ox 97.8 F 77 16 146/81 98 10/03/19 08:47 10/03/19 08:47 10/03/19 08:47 10/03/19 08:47 10/03/19 08:47 VS wnl, mildly hypertensive HPI for details, exam as documented. nares evaluated - left nare anterior septum with small area of old blood, mild bleeding with cotton swab, will do topical cautery with silver nitrate. labs and lytes unremarkable. coags wnl. trop neg, EKG unremarkable, similar to prior EKG without reciprocal changes, small elevation in V1-2, but not meeting stemi criteria and appears similar to prior EKG. dimer neg, wells score applied 1 for hemoptysis, with neg dimer as screening tool, so unlikely PE CTH unremarkable, no acute findings, mass/bleed/cva. pt instructed to avoid nose blowing, digital manipulation as likely trigger of dry air/weather changes Pt to be discharged in stable condition. Patient made aware of clinical impression, treatment recommendations and disposition plan, return precautions discussed (including but not limited to new or persistent/worsening symptoms, pain, fevers, or signs of infection, chest pain, respiratory distress, inability to tolerate oral intake, dehydration, syncope, or neurologic changes) . Follow up with PMD as recommended, follow up information provided, take medications as instructed for duration of time. continue with supportive care, avoid triggers and precipitants. All questions answered to patient's satisfaction and expressed understanding and comfort with this. At the time of discharge, the patient is alert, clinically improved, tolerating po and verbalizes understanding of instructions, satisfied with the care received and felt comfortable with the plan. Patient does not suffer from an acute life- threatening medical condition at this time and is safe for outpatient follow- up. 10/03/19 12:14 Heart Score/ECG Review #1 ECG reviewed & interpreted by me at: 09:55 General ECG Interpretation: Sinus Rhythm, Normal Rate, Normal Intervals Compared to previous ECG there are: No significant change 10/03/19 10:26 nonspecific T wave abnormalities in I, AVL, small elevation in V1, V2, similar to prior, no reciprocal depressions in ST segments. 10/03/19 10:27
[2019-10-03 09:56] LABS: INR 1.11 (0.83-1.09); PROTHROMBIN TIME (PATIENT) 13.1 SEC (9.7-13.0)
[2019-10-03 10:04] LABS: ALBUMIN 3.8 g/dl (3.4-5.0); ALK PHOS 80 U/L (45-117); ANION GAP 5 MMOL/L (8-16); BILIRUBIN,TOTAL 0.7 mg/dL (0.2-1); BLOOD UREA NITROGEN 17.9 mg/dL (7-18); CHLORIDE 100 mmol/L (98-107); CO2 27 mmol/L (21-32); GLUCOSE,RANDOM 238 mg/dL (74-106); SGOT/AST 84 U/L (15-37); SGPT/ALT 62 U/L (13-61); SODIUM 132 mmol/L (136-145); TOT PROT 7.4 g/dl (6.4-8.2)
[2019-10-03 10:20] LABS: ACTIVATED PTT 26.5 SECONDS (25.2-36.5)
[2019-10-03 10:42] LABS: PLATELET ESTIMATE NORMAL
[2019-10-03] MEDS ORDERED: LORATADINE 10 MG TABLET PO ONE (10:54)
[2019-10-03] MEDS ORDERED: LORATADINE 10 MG TABLET ONE (11:08)
[2019-10-03] MEDS ORDERED: SILVER NITRATE 75% APPLIC STCK 1 PKT EACH TP ONE ×2 (11:31→11:41)
[2019-10-03] MEDS ORDERED: SILVER NITRATE 75% APPLIC STCK 1 PKT EACH ONE (11:42)
[2019-10-03 13:04] VITALS: BP 124/77; PULSE 74; TEMP 98.2
--- NOTE | 2019-10-04 20:04 | EKG ---
Test Reason : Blood Pressure : / mmHG Vent. Rate : 073 BPM Atrial Rate : 073 BPM P-R Int : 186 ms QRS Dur : 094 ms QT Int : 426 ms P-R-T Axes : 051 002 084 degrees QTc Int : 469 ms NORMAL SINUS RHYTHM NONSPECIFIC T WAVE ABNORMALITY WHEN COMPARED WITH ECG OF 12-MAR-2018 05:35, CRITERIA FOR SEPTAL INFARCT ARE NO LONGER PRESENT Confirmed by EDUARDO MCCARTHY MD ([id number]) on 10/04/2019 8:04:47 PM Referred By: Confirmed By:EDUARDO MCCARTHY MD
== END 2019-10-03 13:04 | disposition home or self-care (01) ==
LOC: JER 08:45
PROC: 093K7ZZ Control Bleeding in Nasal Mucosa and Soft Tissue, Via Natural or Artificial Opening (ICD-10-PCS; principal; 2019-10-03)
PROC: 3E0337Z Introduction of Electrolytic and Water Balance Substance into Peripheral Vein, Percutaneous Approach (ICD-10-PCS; 2019-10-03)
DX: R04.0 Epistaxis (principal); R51 Headache; E87.1 Hypo-osmolality and hyponatremia; D72.828 Other elevated white blood cell count; I25.10 Atherosclerotic heart disease of native coronary artery without angina pectoris; I10 Essential (primary) hypertension; Z95.1 Presence of aortocoronary bypass graft; Z95.5 Presence of coronary angioplasty implant and graft; E11.9 Type 2 diabetes mellitus without complications; Z79.4 Long term (current) use of insulin; E78.00 Pure hypercholesterolemia, unspecified; K21.9 Gastro-esophageal reflux disease without esophagitis; Z79.82 Long term (current) use of aspirin; Z79.02 Long term (current) use of antithrombotics/antiplatelets
CPT/HCPCS: 30901; 36415; 70450-TC; 71046-TC-FY; 80053; 84132; 84484; 85025; 85379; 85610; 85730; 93005; 93010; 96360; 99282-25; J0131; J7030

== ENCOUNTER 2022-09-03 15:43 | Emergency (ER) | payer OTHER ==
[2022-09-03 15:59] VITALS: BMI 29.7
[2022-09-03 20:53] VITALS: BP 125/71; PULSE 85; RESP 16; TEMP 98.1
== END 2022-09-03 20:54 | disposition home or self-care (01) ==
LOC: JER 15:43
DX: S09.90XA Unspecified injury of head, initial encounter (principal); W01.0XXA Fall on same level from slipping, tripping and stumbling without subsequent striking against object, initial encounter
CPT/HCPCS: 70450-TC; 72125-TC; 72170-TC-FY; 73502-TC-LT-FY; 82962; 99285-25

== ENCOUNTER 2022-11-05 14:43 | Emergency (ER) | payer OTHER ==
[2022-11-05 15:10] VITALS: BP 115/69; PULSE 97; RESP 18; TEMP 98.1; BMI 29.5
[2022-11-05] MEDS ORDERED: ACETAMINOPHEN 325 MG TABLET (FP) PO ONE (16:09)
[2022-11-05] MEDS ORDERED: LIDOCAINE 5% TOPICAL PATCH TP ONE (16:09)
[2022-11-05] MEDS ORDERED: CYCLOBENZAPRINE HCL 10 MG TABLET (FP) PO ONE (16:09)
[2022-11-05] MEDS ORDERED: ACETAMINOPHEN 325 MG TABLET (FP) ONE (16:21)
[2022-11-05] MEDS ORDERED: LIDOCAINE 5% TOPICAL PATCH ONE (16:21)
[2022-11-05] MEDS ORDERED: CYCLOBENZAPRINE HCL 10 MG TABLET (FP) ONE (16:21)
[2022-11-05] MEDS ORDERED: METHOCARBAMOL 500 MG TABLET PO ONE (17:49)
[2022-11-05] MEDS ORDERED: predniSONE 20 MG TABLET (UD) PO ONE (17:49)
[2022-11-05] MEDS ORDERED: predniSONE 20 MG TABLET (UD) ONE (18:09)
[2022-11-05] MEDS ORDERED: METHOCARBAMOL 500 MG TABLET ONE (18:09)
[2022-11-05] MEDS ORDERED: LIDOCAINE PATCH REMOVAL MC SCH (22:00)
== END 2022-11-05 18:29 | disposition home or self-care (01) ==
LOC: JER 14:43 → JERFT 14:43
DX: M54.89 Other dorsalgia (principal)
CPT/HCPCS: 72100-TC-FY; 99283-25

== ENCOUNTER → 2022-11-09 | Day surgery (SDC) | payer OTHER ==
[2022-11-05 11:39] VITALS: BMI 29.5
[~2022-11-09] MED LIST: BUPIVACAINE HCL/PF 2.5 MG/ML - 30 ML VIAL IJ ONE; DEXAMETHASONE SOD PHOSPHATE 4 MG/1 ML VIAL ONE; EPINEPHrine 1:1,000 1,000 MCG/ML ML ONE; LIDOCAINE HCL 1%, 10 MG/ML (20ML VIAL) ONE; LIDOCAINE HCL 2% (20ML MULTI-DOSE VIAL) ONE; MIDAZOLAM HCL 2 MG/2 ML SINGLE DOSE VIAL ONE; NEOSTIGMINE METHYLSULFATE 0.5 MG/1 ML - 10 ML MDV ONE; ONDANSETRON 4 MG/2 ML VIAL ONE; PROPOFOL 40 ML ONE; ROCURONIUM BROMIDE 50 MG/5 ML SYRINGE ONE; SUCCINYLCHOLINE CHLORIDE 200 MG/10 ML SYRINGE ONE; ceFAZolin SODIUM 1 GM VIAL ONE
[2022-11-09 08:25] VITALS: RESP 18; TEMP 98
[2022-11-09 08:56] VITALS: BP 118/74; PULSE 71
== END | disposition home or self-care (01) ==
LOC: FASU 06:17
PROVIDERS: ATTEND Orthopaedic Surgery
PROC: 0LN70ZZ Release Right Hand Tendon, Open Approach (ICD-10-PCS; principal; 2022-11-09 07:56)
DX: M65.341 Trigger finger, right ring finger (principal)
CPT/HCPCS: 82962

== ENCOUNTER 2022-12-14 06:34 | Day surgery (SDC) | payer OTHER ==
[2022-12-11 16:39] VITALS: BMI 29.7
[2022-12-14] MEDS ORDERED: LIDOCAINE HCL 1%, 10 MG/ML (20ML VIAL) ONE (07:15)
[2022-12-14] MEDS ORDERED: MIDAZOLAM HCL 2 MG/2 ML SINGLE DOSE VIAL ONE (07:25)
[2022-12-14] MEDS ORDERED: PROPOFOL 20 ML ONE (07:25)
[2022-12-14] MEDS ORDERED: LIDOCAINE HCL/PF 2% SDV 5ML VIAL ONE (08:27)
[2022-12-14 09:25] VITALS: PULSE 84; RESP 19
[2022-12-14 09:46] VITALS: BP 120/70; TEMP 97.8
== END 2022-12-14 09:46 | disposition home or self-care (01) ==
LOC: FASU 06:34
PROVIDERS: ATTEND Orthopaedic Surgery
PROC: 0LN80ZZ Release Left Hand Tendon, Open Approach (ICD-10-PCS; principal; 2022-12-14 08:20)
DX: M65.342 Trigger finger, left ring finger (principal)
CPT/HCPCS: 82962

== ENCOUNTER 2023-04-02 12:17 | Observation (INO) | payer OTHER ==
[2023-04-02 12:22] VITALS: BMI 29.2
[2023-04-02] MEDS ORDERED: SODIUM CHLORIDE 0.9% 500 ML INFUS.BAG IV ONE (13:38)
[2023-04-02 13:42] LABS: BASO % 0.2 % (0-2.0); EOS % 5.5 % (0-4.5); HEMATOCRIT 47.7 % (35.4-49); HEMOGLOBIN 16.1 GM/dL (11.7-16.9); LYMPH % 27.3 % (8-40); MCH 31.5 pg (25.7-33.7); MCHC 33.7 g/dl (32.0-35.9); MEAN CELL VOLUME 93.6 fl (80-96); MEAN PLT VOLUME 8.3 fl (7.5-11.1); MONO % 6.5 % (3.8-10.2); NEUT % 60.5 % (42.8-82.8); PLATELET COUNT 296 10^3/uL (134-434); RBC 5.09 M/mm3 (4.00-5.60); RDW 13.6 % (11.9-15.9); WHITE BLOOD COUNT 16.5 K/mm3 (4.0-10.0)
[2023-04-02 13:49] LABS: INR 1.09 (0.83-1.09); PROTHROMBIN TIME (PATIENT) 12.6 SEC (9.7-13.0)
[2023-04-02 13:51] LABS: ACTIVATED PTT 37.1 SECONDS (25.2-36.5)
[2023-04-02 14:07] LABS: POTASSIUM 4.5 mmol/L (3.5-5.1)
[2023-04-02 14:10] LABS: ALBUMIN 4.2 g/dl (3.4-5.0)
[2023-04-02 14:13] LABS: CREATININE 1.2 mg/dL (0.55-1.3)
[2023-04-02 14:14] LABS: BILIRUBIN,TOTAL 0.4 mg/dL (0.2-1)
[2023-04-02 14:17] LABS: N-TERMINAL BNP 200.2 pg/ml (5-125)
[2023-04-02] MEDS ORDERED: SODIUM CHLORIDE 500 ML IV STA (15:33)
[2023-04-02] MEDS ORDERED: PATIENT'S OWN MEDICATION (NON-FORMULARY) (Fluticasone Propionate [Flovent Diskus] 50 MCG B IH PRN (16:31)
[2023-04-02] MEDS ORDERED: INSULIN (NOVOLOG) ASPART 100 UNITS/ML 10ML VIAL SQ SCH (16:45)
[2023-04-02] MEDS ORDERED: ESCITALOPRAM OXALATE 10 MG TABLET ONE (17:20)
[2023-04-02] MEDS ORDERED: LIDOCAINE 5% TOPICAL PATCH ONE (17:21)
[2023-04-02] MEDS: ESCITALOPRAM OXALATE 10 MG TABLET PO SCH (17:34)
[2023-04-02] MEDS: LIDOCAINE 5% TOPICAL PATCH TP SCH (17:34)
[2023-04-02] MEDS: INSULIN SLIDING SCALE (NOVOLOG) 1 VIAL SQ SCH (17:51)
[2023-04-02] MEDS: GABAPENTIN 300 MG CAPSULE PO SCH (21:40)
[2023-04-02] MEDS: MELATONIN 5 MG TABLETS PO PRN (21:42)
[2023-04-02] MEDS: METOPROLOL TARTRATE 50 MG TABLET (FP) PO SCH (21:42)
[2023-04-02] MEDS: LIDOCAINE PATCH REMOVAL MC SCH (21:42)
[2023-04-02] MEDS: ATORVASTATIN CA 80 MG TABLET (FP) PO SCH (21:42)
[2023-04-02] MEDS: RANOLAZINE E.R. 500 MG TABLET (FP) PO SCH (21:43)
[2023-04-02 23:23] VITALS: RESP 20
[2023-04-03] MEDS: INSULIN SLIDING SCALE (NOVOLOG) 1 VIAL SQ SCH ×3 (06:01→17:32)
[2023-04-03 07:12] LABS: BASO % 0.2 % (0-2.0); EOS % 6.3 % (0-4.5); HEMATOCRIT 42.4 % (35.4-49); HEMOGLOBIN 14.6 GM/dL (11.7-16.9); LYMPH % 25.3 % (8-40); MCH 31.9 pg (25.7-33.7); MCHC 34.5 g/dl (32.0-35.9); MEAN CELL VOLUME 92.4 fl (80-96); MEAN PLT VOLUME 8.6 fl (7.5-11.1); NEUT % 61.2 % (42.8-82.8); PLATELET COUNT 217 10^3/uL (134-434); RBC 4.59 M/mm3 (4.00-5.60); RDW 13.3 % (11.9-15.9)
[2023-04-03 07:34] LABS: POTASSIUM 4.1 mmol/L (3.5-5.1)
[2023-04-03 07:38] LABS: BLOOD UREA NITROGEN 23.5 mg/dL (7-18); CALCIUM 8.7 mg/dL (8.5-10.1)
[2023-04-03 07:42] LABS: CREATININE 0.7 mg/dL (0.55-1.3)
[2023-04-03] MEDS ORDERED: PANTOPRAZOLE 40 MG TABLET PO SCH (10:00)
[2023-04-03] MEDS ORDERED: INSULIN (LEVEMIR) 100 UNITS/ML UNITS SQ SCH ×2 (10:00)
[2023-04-03] MEDS ORDERED: LISINOPRIL 20 MG TABLET PO SCH (10:00)
[2023-04-03] MEDS ORDERED: PATIENT'S OWN MEDICATION (NON-FORMULARY) (Insulin Glargine,Hum.Rec.Anlog [Basaglar Kwikpen SQ SCH (10:00)
[2023-04-03] MEDS: ASPIRIN 81 MG CHEWABLE TABLETS PO SCH (10:07)
[2023-04-03] MEDS: TAMSULOSIN HCL 0.4 MG CAP PO SCH (10:07)
[2023-04-03] MEDS: POLYETHYLENE GLYCOL (HEALTHYLAX) 3350 17 GM PACKET PO SCH (10:08)
[2023-04-03] MEDS: METOPROLOL TARTRATE 50 MG TABLET (FP) PO SCH ×2 (10:09→21:29)
[2023-04-03] MEDS: ESCITALOPRAM OXALATE 10 MG TABLET PO SCH (10:09)
[2023-04-03] MEDS: LIDOCAINE 5% TOPICAL PATCH TP SCH (10:09)
[2023-04-03] MEDS: GABAPENTIN 300 MG CAPSULE PO SCH ×2 (10:09→21:30)
[2023-04-03] MEDS: RANOLAZINE E.R. 500 MG TABLET (FP) PO SCH ×2 (10:10→21:30)
[2023-04-03] MEDS: CLOPIDOGREL BISULFATE 75 MG TABLET (FP) PO SCH (10:10)
[2023-04-03] MEDS ORDERED: SODIUM CHLORIDE 500 ML IV STA (13:26)
[2023-04-03] MEDS ORDERED: SODIUM CHLORIDE 1,000 ML IV SCH (13:45)
[2023-04-03] MEDS: ATORVASTATIN CA 80 MG TABLET (FP) PO SCH (21:29)
[2023-04-03] MEDS: MELATONIN 5 MG TABLETS PO PRN (21:30)
[2023-04-03] MEDS: LIDOCAINE PATCH REMOVAL MC SCH (21:35)
[2023-04-04] MEDS ORDERED: INSULIN (NOVOLOG) ASPART 100 UNITS/ML 10ML VIAL ONE ×2 (06:19→11:13)
[2023-04-04] MEDS: INSULIN SLIDING SCALE (NOVOLOG) 1 VIAL SQ SCH ×2 (06:21→11:12)
[2023-04-04 06:45] LABS: ALBUMIN 3.6 g/dl (3.4-5.0); CALCIUM 8.6 mg/dL (8.5-10.1); MAGNESIUM 1.2 mg/dL (1.8-2.4)
[2023-04-04 06:46] LABS: CREATININE 0.8 mg/dL (0.55-1.3)
[2023-04-04 06:48] LABS: PHOSPHOROUS 3.6 mg/dL (2.5-4.9)
[2023-04-04 06:50] LABS: BILIRUBIN,TOTAL 0.4 mg/dL (0.2-1); TOT PROT 6.8 g/dl (6.4-8.2)
[2023-04-04] MEDS ORDERED: MAGNESIUM SULF 50% (8.12 MEQ/2 ML-1 GM VIAL) IVPB ONE (06:55)
[2023-04-04] MEDS ORDERED: INSULIN (LEVEMIR) 100 UNITS/ML UNITS SQ SCH (07:00)
[2023-04-04 07:13] LABS: HEMATOCRIT 40.8 % (35.4-49); HEMOGLOBIN 14.3 GM/dL (11.7-16.9); MCH 32.1 pg (25.7-33.7); MCHC 35.1 g/dl (32.0-35.9); MEAN CELL VOLUME 91.4 fl (80-96); MEAN PLT VOLUME 7.9 fl (7.5-11.1); PLATELET COUNT 216 10^3/uL (134-434); RBC 4.46 M/mm3 (4.00-5.60); RDW 13.5 % (11.9-15.9)
[2023-04-04] MEDS ORDERED: ALBUTEROL SO4 HFA INHALER IH PRN (08:51)
[2023-04-04] MEDS: POLYETHYLENE GLYCOL (HEALTHYLAX) 3350 17 GM PACKET PO SCH (09:18)
[2023-04-04] MEDS: GABAPENTIN 300 MG CAPSULE PO SCH (09:19)
[2023-04-04] MEDS: CLOPIDOGREL BISULFATE 75 MG TABLET (FP) PO SCH (09:19)
[2023-04-04] MEDS: ASPIRIN 81 MG CHEWABLE TABLETS PO SCH (09:19)
[2023-04-04] MEDS: RANOLAZINE E.R. 500 MG TABLET (FP) PO SCH (09:19)
[2023-04-04] MEDS: TAMSULOSIN HCL 0.4 MG CAP PO SCH (09:20)
[2023-04-04] MEDS: LIDOCAINE 5% TOPICAL PATCH TP SCH (09:22)
[2023-04-04] MEDS ORDERED: HYDROCHLOROTHIAZIDE 12.5 MG CAPSULE (FP) PO SCH (10:00)
[2023-04-04] MEDS ORDERED: FAMOTIDINE 20 MG TABLET PO SCH (10:00)
[2023-04-04] MEDS ORDERED: LISINOPRIL 20 MG TABLET PO SCH (10:00)
[2023-04-04] MEDS ORDERED: MAGNESIUM SULF 50% (8.12 MEQ/2 ML-1 GM VIAL) IVPB SCH (10:00)
[2023-04-04 11:19] VITALS: BP 136/77; PULSE 112; TEMP 98.1
[2023-04-04] MEDS ORDERED: MAGNESIUM OXIDE 400 MG TABLET (FP) PO ONE (11:35)
== END 2023-04-04 12:30 | disposition home or self-care (01) ==
LOC: JER 12:17 → JERBED 16:06 → J4W 19:34
PROVIDERS: ADMIT Internal Medicine; ATTEND Internal Medicine
PROC: 3E023GC Introduction of Other Therapeutic Substance into Muscle, Percutaneous Approach (ICD-10-PCS; principal; 2023-04-02)
PROC: 3E013VG Introduction of Insulin into Subcutaneous Tissue, Percutaneous Approach (ICD-10-PCS; 2023-04-02)
PROC: 3E033GC Introduction of Other Therapeutic Substance into Peripheral Vein, Percutaneous Approach (ICD-10-PCS; 2023-04-02)
PROC: 3E0337Z Introduction of Electrolytic and Water Balance Substance into Peripheral Vein, Percutaneous Approach (ICD-10-PCS; 2023-04-02)
DX: R11.2 Nausea with vomiting, unspecified (principal); R19.7 Diarrhea, unspecified; R06.02 Shortness of breath; R07.89 Other chest pain; I25.10 Atherosclerotic heart disease of native coronary artery without angina pectoris; E11.9 Type 2 diabetes mellitus without complications; E78.5 Hyperlipidemia, unspecified; I25.83 Coronary atherosclerosis due to lipid rich plaque; I11.9 Hypertensive heart disease without heart failure; R53.83 Other fatigue; Z87.891 Personal history of nicotine dependence; Z95.1 Presence of aortocoronary bypass graft; R00.0 Tachycardia, unspecified; R06.00 Dyspnea, unspecified; F32.A Depression, unspecified
CPT/HCPCS: 0241U-QW; 36415; 71045-TC-FY; 71275-TC; 80048; 80053; 82550; 82962; 83036; 83735; 83880; 84100; 84443; 84484; 85025; 85027; 85610; 85730; 86140; 86682; 86790; 93005; 93010; 93306-TC; 96361; 96372; 96374; 96376; 97116-GP; 97161-GP; 99285-25; G0378; Q9967

== ENCOUNTER 2024-04-28 14:42 | Emergency (ER) | payer OTHER ==
[2024-04-28 15:16] VITALS: BP 124/78; PULSE 103; RESP 16; TEMP 98.6; BMI 32.3
[2024-04-28] MEDS ORDERED: ACETAMINOPHEN INJECTION 100 ML IVPB ONE (16:15)
[2024-04-28 16:20] LABS: HEMATOCRIT 38.4 % (35.4-49); MCH 32.3 pg (25.7-33.7); MCHC 33.9 g/dl (32.0-35.9); MEAN CELL VOLUME 95.5 fl (80-96); MEAN PLT VOLUME 7.8 fl (7.5-11.1); PLATELET COUNT 259 10^3/uL (134-434); RBC 4.02 M/mm3 (4.00-5.60); RDW 14.5 % (11.9-15.9); WHITE BLOOD COUNT 10.5 K/mm3 (4.0-10.0)
[2024-04-28] MEDS: SODIUM CHLORIDE 1,000 ML IV STA (16:23)
[2024-04-28] MEDS: ACETAMINOPHEN 1000 MG/100 ML BAG IVPB ONE (16:23)
[2024-04-28 16:32] LABS: INR 1.13 (0.83-1.09); PROTHROMBIN TIME (PATIENT) 12.7 SEC (9.7-13.0)
[2024-04-28 16:39] LABS: POTASSIUM 4.3 mmol/L (3.5-5.1)
[2024-04-28 16:40] LABS: ALBUMIN 3.6 g/dl (3.4-5.0); CALCIUM 9.2 mg/dL (8.5-10.1)
[2024-04-28 16:41] LABS: BLOOD UREA NITROGEN 16.7 mg/dL (7-18)
[2024-04-28 16:46] LABS: BILIRUBIN,TOTAL 0.5 mg/dL (0.2-1); TOT PROT 7.3 g/dl (6.4-8.2)
[2024-04-28 16:49] LABS: N-TERMINAL BNP 177.7 pg/ml (5-125)
[2024-04-28 16:56] LABS: CREATININE 1.1 mg/dL (0.55-1.3)
[2024-04-28 16:59] LABS: ANISOCYTOSIS 1+; MACROCYTOSIS 1+
[2024-04-28 17:02] LABS: PLATELET ESTIMATE ADEQUATE
== END 2024-04-28 17:29 | disposition home or self-care (01) ==
LOC: JER 14:42
PROC: 3E033NZ Introduction of Analgesics, Hypnotics, Sedatives into Peripheral Vein, Percutaneous Approach (ICD-10-PCS; principal; 2024-04-28)
PROC: 3E0337Z Introduction of Electrolytic and Water Balance Substance into Peripheral Vein, Percutaneous Approach (ICD-10-PCS; 2024-04-28)
DX: U07.1 COVID-19 (principal); R06.02 Shortness of breath; R05.9 Cough, unspecified; R12 Heartburn
CPT/HCPCS: 0241U-QW; 71045-TC-FY; 80053; 83880; 84484; 85025; 85610; 85730; 93005; 93010; 99285-25; J0131

== ENCOUNTER 2025-03-15 14:06 | Observation (INO) | payer OTHER ==
[2025-03-15 14:33] VITALS: RESP 18; BMI 28.3
[2025-03-15] MEDS ORDERED: ASPIRIN 81 MG CHEWABLE TABLETS ONE (14:43)
[2025-03-15] MEDS: ASPIRIN 81 MG CHEWABLE TABLETS PO ONE (14:47)
[2025-03-15] MEDS ORDERED: ACETAMINOPHEN INJECTION 100 ML ONE (15:17)
[2025-03-15 15:19] LABS: ABSOLUTE IMMATURE GRANULOCYTES 0.34 x10^3/uL (0.0-0.031); BASOPHILS # 0.07 x10^3/uL (0.01-0.08); EOSINOPHILS # 0.27 x10^3/uL (0.04-0.54); HEMATOCRIT 37.3 % (40.1-51.0); HEMOGLOBIN 12.4 g/dL (13.7-17.5); MCHC 33.2 g/dl (32.3-36.5); MEAN CELL VOLUME 95.9 fl (79.0-92.2); MEAN PLT VOLUME 9.5 fl (9.4-12.4); MONOCYTE # 0.48 x10^3/uL (0.30-0.82); MONOCYTE % 5.3 % (5.3-12.2); PLATELET COUNT 196 x10^3/uL (163-337); RDW 12.4 % (12.2-16.4)
[2025-03-15] MEDS: ACETAMINOPHEN 1000 MG/100 ML BAG IVPB ONE (15:22)
[2025-03-15 15:42] LABS: POTASSIUM 5.6 mmol/L (3.5-5.1)
[2025-03-15 15:46] LABS: ALBUMIN 3.6 g/dl (3.4-5.0); BLOOD UREA NITROGEN 20.2 mg/dL (7-18); CALCIUM 9.5 mg/dL (8.5-10.1); MAGNESIUM 1.5 mg/dL (1.8-2.4)
[2025-03-15 15:50] LABS: BILIRUBIN,TOTAL 0.8 mg/dL (0.2-1); TOT PROT 7.1 g/dl (6.4-8.2)
[2025-03-15 16:38] LABS: HCV DIAGNOSTIC IN-HOUSE W/RFLX NON-REACTIVE (NONREACTIVE); HIV INTERPRETATION NEGATIVE (NEGATIVE)
[2025-03-15 18:00] LABS: POTASSIUM 4.6 mmol/L (3.5-5.1)
[2025-03-15 18:02] LABS: CALCIUM 9.4 mg/dL (8.5-10.1)
[2025-03-15 18:03] LABS: ALBUMIN 3.4 g/dl (3.4-5.0); BLOOD UREA NITROGEN 20.6 mg/dL (7-18)
[2025-03-15 18:09] LABS: BILIRUBIN,TOTAL 0.7 mg/dL (0.2-1); TOT PROT 6.6 g/dl (6.4-8.2)
[2025-03-15] MEDS ORDERED: ALBUTEROL SO4 HFA INHALER IH PRN (20:30)
[2025-03-15] MEDS: ALBUTEROL SO4 2.5/IPRATROPIUM 0.5 INH SOL 3 ML VIAL.NEB. NEB ONE (21:09)
[2025-03-15] MEDS ORDERED: ALBUTEROL SO4 2.5/IPRATROPIUM 0.5 INH SOL 3 ML VIAL.NEB. NEB PRN (21:18)
[2025-03-15] MEDS ORDERED: RANOLAZINE E.R. 500 MG TABLET (FP) ONE (21:59)
[2025-03-15] MEDS ORDERED: PATIENT'S OWN MEDICATION (NON-FORMULARY) (Lisinopril/Hydrochlorothiazide [Lisinopril-Hctz PO SCH (22:00)
[2025-03-15] MEDS: ATORVASTATIN CA 80 MG TABLET (FP) PO SCH (22:02)
[2025-03-15] MEDS: GABAPENTIN 300 MG CAPSULE PO SCH (22:02)
[2025-03-15] MEDS: RANOLAZINE E.R. 500 MG TABLET (FP) PO SCH (22:21)
[2025-03-15] MEDS: INSULIN (NOVOLOG) ASPART 100 UNITS/ML 10ML VIAL SQ SCH (22:22)
[2025-03-15] MEDS: INSULIN GLARGINE (LANTUS) 100 UNITS/ML UNITS SQ SCH (22:24)
[2025-03-15] MEDS: RANOLAZINE E.R. 1,000 MG TABLET (FP) PO SCH (22:29)
[2025-03-15] MEDS: NORTRIPTYLINE HCL 10 MG CAPSULE PO SCH (22:58)
[2025-03-15] MEDS: IPRATROPIUM/ALBUTEROL (COMBIVENT) RESPIMAT 20-100 MCG IH SCH (22:58)
[2025-03-16] MEDS: METFORMIN HCL 500 MG PO SCH (05:26)
[2025-03-16] MEDS: MAGNESIUM SULF 50% (8.12 MEQ/2 ML-1 GM VIAL) IVPB ONE (07:11)
[2025-03-16 07:29] LABS: BASOPHILS # 0.07 x10^3/uL (0.01-0.08); EOSINOPHIL % 2.7 % (0.8-7.0); EOSINOPHILS # 0.21 x10^3/uL (0.04-0.54); HEMATOCRIT 37.9 % (40.1-51.0); HEMOGLOBIN 12.6 g/dL (13.7-17.5); MCHC 33.2 g/dl (32.3-36.5); MEAN CELL VOLUME 93.6 fl (79.0-92.2); MEAN PLT VOLUME 9.7 fl (9.4-12.4); MONOCYTE # 0.57 x10^3/uL (0.30-0.82); MONOCYTE % 7.2 % (5.3-12.2); PLATELET COUNT 195 x10^3/uL (163-337); RDW 12.1 % (12.2-16.4)
[2025-03-16 07:35] LABS: POTASSIUM 4.2 mmol/L (3.5-5.1)
[2025-03-16 07:58] LABS: CALCIUM 9.2 mg/dL (8.5-10.1)
[2025-03-16 07:59] LABS: ALBUMIN 3.4 g/dl (3.4-5.0); BLOOD UREA NITROGEN 17.7 mg/dL (7-18); MAGNESIUM 1.7 mg/dL (1.8-2.4)
[2025-03-16 08:02] LABS: CREATININE 0.9 mg/dL (0.55-1.3); PHOSPHOROUS 3.3 mg/dL (2.5-4.9)
[2025-03-16 08:05] LABS: BILIRUBIN,TOTAL 0.6 mg/dL (0.2-1); TOT PROT 6.5 g/dl (6.4-8.2)
[2025-03-16] MEDS ORDERED: MAGNESIUM 1GM/D5W - 1 GM/100 ML IVPB IVPB ONE (08:11)
[2025-03-16 09:00] VITALS: BP 125/70; PULSE 71; TEMP 97.9
[2025-03-16] MEDS: LISINOPRIL 20 MG TABLET PO SCH (09:42)
[2025-03-16] MEDS: ASPIRIN 81 MG CHEWABLE TABLETS PO SCH (09:43)
[2025-03-16] MEDS: TAMSULOSIN HCL 0.4 MG CAP PO SCH (09:43)
[2025-03-16] MEDS: ASCORBIC ACID 500 MG TABLET (FP) PO SCH (09:43)
[2025-03-16] MEDS: HYDROCHLOROTHIAZIDE 12.5 MG CAPSULE (FP) PO SCH (09:43)
[2025-03-16] MEDS: PANTOPRAZOLE 40 MG TABLET PO SCH (09:43)
[2025-03-16] MEDS: CLOPIDOGREL BISULFATE 75 MG TABLET (FP) PO SCH (09:43)
[2025-03-16] MEDS: amLODIPine BESYLATE 5 MG TABLET (FP) PO SCH (09:43)
[2025-03-16] MEDS ORDERED: PATIENT'S OWN MEDICATION (NON-FORMULARY) (Omeprazole [Omeprazole] 20 MG Tablet.Dr) PO SCH (10:00)
== END 2025-03-16 13:37 | disposition home or self-care (01) ==
LOC: JER 14:06 → JERBED 18:24 → J4W 21:02
PROVIDERS: ADMIT Internal Medicine; ATTEND Internal Medicine
PROC: 3E0F7GC Introduction of Other Therapeutic Substance into Respiratory Tract, Via Natural or Artificial Opening (ICD-10-PCS; principal; 2025-03-15)
PROC: 3E033NZ Introduction of Analgesics, Hypnotics, Sedatives into Peripheral Vein, Percutaneous Approach (ICD-10-PCS; 2025-03-15)
PROC: 3E013VG Introduction of Insulin into Subcutaneous Tissue, Percutaneous Approach (ICD-10-PCS; 2025-03-15)
PROC: 3E033GC Introduction of Other Therapeutic Substance into Peripheral Vein, Percutaneous Approach (ICD-10-PCS; 2025-03-15)
DX: R07.89 Other chest pain (principal); I11.9 Hypertensive heart disease without heart failure; E78.5 Hyperlipidemia, unspecified; E11.9 Type 2 diabetes mellitus without complications; Z95.5 Presence of coronary angioplasty implant and graft; G89.29 Other chronic pain; F17.210 Nicotine dependence, cigarettes, uncomplicated; Z95.1 Presence of aortocoronary bypass graft
CPT/HCPCS: 0241U-QW; 36415; 71045-TC-FY; 80053; 82607; 82746; 82962; 83036; 83735; 84100; 84484; 85025; 86803; 87389; 93005; 93010; 93306-TC; 94640; 96372; 96374; 96375; 99285-25; G0378; J0131; J3535